=== PATIENT | female | born 1975 ===

== ENCOUNTER 2019-06-26 17:25 | Emergency (ER) | payer SELFPAY ==
--- NOTE | 2019-06-26 18:46 | RAD ---
PORTABLE CHEST: 06/26/19 HISTORY: Shortness of breath. The heart size is borderline for portable technique. There is some atherosclerotic change of the aort a. The lungs are clear of any infiltrative process. IMPRESSION: No active intrathoracic disease. POS: [facility]
--- NOTE | 2019-06-28 15:40 | EKG ---
Test Reason : Blood Pressure : / mmHG Vent. Rate : 091 BPM Atrial Rate : 091 BPM P-R Int : 116 ms QRS Dur : 082 ms QT Int : 374 ms P-R-T Axes : 059 062 054 degrees QTc Int : 460 ms Normal sinus rhythm Possible Left atrial enlargement Prolonged QT Abnormal ECG Confirmed by JOHANNA WRIGHT M.D. ([id number]), editor in chief ARELI ISIDRO ([id number]) on 06/28/2019 3:39:56 PM Referred By: Confirmed By:JOHANNA WRIGHT M.D.
== END 2019-06-26 19:10 | disposition home or self-care (01) ==
LOC: ERS 17:25
DX: T78.40XA Allergy, unspecified, initial encounter (principal); J44.9 Chronic obstructive pulmonary disease, unspecified; Z87.891 Personal history of nicotine dependence
CPT/HCPCS: 71045; 93005

== ENCOUNTER 2020-06-15 15:37 | Emergency (ER) | payer OTHER ==
--- NOTE | 2020-06-15 16:01 | RAD ---
Exam: Chest one view HISTORY:Shortness of breath. Comparison: 06/26/2019 FINDINGS: Cardiac silhouette:Cardiomegaly Aorta: Unremarkable Pulmonary vessels: Prominent pulmonary vasculature Costophrenic angles: Clear LUNGS: Hyperinflated. There is interstitial prominence superimposed upon chronic change. Pneumothorax: None Osseous abnormalities: None IMPRESSION: Congestive heart failure.
[2020-06-15 16:10] LABS: Actual Bicarbonate (HCO3a) 20.9 mEq/L (22-28); Analyzer IN Cardio ER; Base Excess (BEa) -4.3 mEq/L (-2.0 to +3.0); CO2 Tension 39.2 mmHg (35.0-45.0); Calcium, Ionized (arterial) 1.15 mmol/L (1.12-1.30); Carboxyhemoglobin (COHb) 0.6 gm% (0.0-3.0); Hemoglobin (Hb) 14.6 g/dL (12.0-16.0); O2 Tension (PaO2), arterial 84.4 mmHg (80.0-100.0); Potassium - ABG Lab 4.02 mmol/L (3.70-5.30); pH, Arterial 7.35 (7.35-7.45)
[2020-06-15 16:11] LABS: Puncture Site LRA
[2020-06-15 16:33] LABS: #Eosinphils 0.4 thou/uL (0.0-0.7); #Lymphocytes 1.6 thou/uL (1.20-3.40); #Monocytes 0.8 thou/uL (0.11-0.59); #Neutrophils 9.9 thou/uL (1.40-6.50); %Basophils 0.3 % (0.0-1.0); %Eosinophils 2.8 % (0.0-10.0); %Lymphocytes 12.8 % (21.0-51.0); %Monocytes 6.5 % (0.0-10.0); %Neutrophils 77.7 % (42.0-75.0); Mean Corpuscular HGB CONC 30.2 g/dL (32.0-36.0); Mean Corpuscular Hemoglobin 24.8 pg (27.0-31.0); Mean Corpuscular Volume 82.1 fL (78.0-98.0); Mean Platelet Volume 11.2 fL (7.4-10.4); Platelet Count 288 thou/uL (130-400); RBC Distribution Width 22.2 % (11.5-14.5); Red Blood Cell (RBC) Count 5.63 mill/uL (4.20-5.40); White Blood Cell (WBC) Count 12.7 thou/uL (4.8-10.8)
[2020-06-15 16:44] LABS: ALT (SGPT) 8 U/L (8-55); AST (SGOT) 13 U/L (5-34); Alkaline Phosphatase 60 U/L (40-110); Anion Gap 14 mmol/L (10-20); BUN (Urea Nitrogen) 15 mg/dL (7.0-18.7); Bilirubin, Total 0.5 mg/dL (0.2-1.2); Calc. Creatinine Clearance 0 mL/min (70-130); Carbon Dioxide 21 mmol/L (22-29); Chloride 106 mmol/L (98-107); Globulin 3.2 g/dL (2.4-3.5); Glucose 113 mg/dL (70-105); Potassium 4.2 mmol/L (3.5-5.1); Protein, Total 7.2 g/dL (6.0-8.3); Sodium 137 mmol/L (136-145)
[2020-06-15] MEDS ORDERED: Nitroglycerin 2% Ointment 1 INCH/1 GM Packet ONE (16:45)
[2020-06-15 16:49] LABS: Anisocytosis SLIGHT = 6-15 cells (100X) (0-5/hpf); Hypochromia SLIGHT = 6-15 cells (100X) (0-5/hpf); Large Platelets MODERATE; MDiff Complete? YES; Ovalocytes SLIGHT = 2-5 cells (100X) (0-1/hpf); Platelet Morphology Comment Appears Adequate; Polychromasia SLIGHT = 2-3 cells (100X) (0-2/hpf); Stomatocytes SLIGHT = 2-5 cells (100X) (0-1/hpf)
--- NOTE | 2020-06-19 10:26 | EKG ---
Test Reason : Blood Pressure : / mmHG Vent. Rate : 090 BPM Atrial Rate : 090 BPM P-R Int : 122 ms QRS Dur : 086 ms QT Int : 394 ms P-R-T Axes : 059 071 044 degrees QTc Int : 481 ms Normal sinus rhythm Possible Left atrial enlargement Abnormal ECG Confirmed by EMMA PULIDO, JUANY Lamar ([id number]), makeup editor ARELI ISIDRO ([id number]) on 06/19/2020 10:26:02 AM Referred By: Confirmed By:JUANY CARTER MD
== END 2020-06-15 18:00 ==
LOC: ERS 15:37
DX: J44.1 Chronic obstructive pulmonary disease with (acute) exacerbation (principal); Z87.891 Personal history of nicotine dependence; Z79.899 Other long term (current) drug therapy
CPT/HCPCS: 36415; 36600; 71045; 80053; 82805; 83880; 84484; 85025; 93005; 94660